=== PATIENT | male | born 1995 | race Caucasian/White ===

== ENCOUNTER 2017-09-12 22:23 | Emergency (ER) | payer OTHER, SELFPAY ==
[~2017-09-12 22:23] MED LIST: Sodium Chloride Irrig Solution 250 ML BOT ONE
--- NOTE | 2017-09-12 23:36 | CT ---
CT HEAD WITHOUT CONTRAST: 09/12/17 COMPARISON: None. HISTORY: Fall, trauma, pain. TECHNIQUE: Serial axial CT imaging is obtained at 5 mm intervals from vertex through skull base without contrast . FINDINGS: The bilateral central incisors of the maxilla are absent, possibly secondary to trauma. There is a fr acture involving the anterior most aspect of the maxilla in this region with associated soft tissue s welling and subcutaneous gas in the perinasal region and anterior to the maxilla on the left. Bilater al nasal bone fractures are suspected as well. No displaced calvarial fracture. No intracranial hemorrhage, midline shift or mass effect. IMPRESSION: Findings suggesting bilateral nasal bone fractures as well as an anterior maxillary fracture with abs ence of bilateral maxillary central incisors. POS: [facility]
[2017-09-12 23:46] LABS: #Basophils 0.1 thou/uL (0.0-0.2); #Eosinphils 0.1 thou/uL (0.0-0.7); #Lymphocytes 1.3 thou/uL (1.20-3.40); #Monocytes 0.9 thou/uL (0.11-0.59); #Neutrophils 8.2 thou/uL (1.40-6.50); %Basophils 0.9 % (0.0-1.0); %Eosinophils 1.2 % (0.0-10.0); %Lymphocytes 12.3 % (28.0-48.0); %Monocytes 8.2 % (0.0-4.0); %Neutrophils 77.5 % (31.0-61.0); Hemoglobin 15.3 g/dL (14.0-18.0); Mean Corpuscular Hemoglobin 31.1 pg (25.0-35.0); Mean Corpuscular Volume 91.3 fL (78.0-98.0); Mean Platelet Volume 8.4 fL (7.4-10.4); Platelet Count 150 thou/uL (130-400); RBC Distribution Width 10.5 % (11.5-14.5); Red Blood Cell (RBC) Count 4.92 mill/uL (4.00-5.20); White Blood Cell (WBC) Count 10.6 thou/uL (4.8-10.8)
[2017-09-13] LABS: ALT (SGPT) 55 U/L (8-55); AST (SGOT) 24 U/L (5-34); Albumin 4.6 g/dL (3.5-5.0); Alkaline Phosphatase 48 U/L (Less than 750); Anion Gap 18 mmol/L (10-20); BUN (Urea Nitrogen) 10 mg/dL (8.9-20.6); Bilirubin, Total 0.6 mg/dL (0.2-1.2); Calc. Creatinine Clearance 0 mL/min (70-130); Calcium 9.3 mg/dL (7.8-10.44); Carbon Dioxide 22 mmol/L (22-29); Chloride 105 mmol/L (98-107); Estimated GFR-MDRD Greater than 90; Globulin 2.7 g/dL (2.4-3.5); Glucose 97 mg/dL (70-105); Potassium 3.7 mmol/L (3.5-5.1); Protein, Total 7.3 g/dL (6.0-8.3); Sodium 141 mmol/L (136-145)
[2017-09-13 00:01] LABS: Acetaminophen Less than 6.0 mcg/mL (10.0-30.0); Alcohol 16 mg/dL (Less than 10); Salicylate Less than 8.0 mg/dL (15.0-30.0)
--- NOTE | 2017-09-13 00:08 | CT ---
FACIAL BONE CT 09/12/17 COMPARISON: None. HISTORY: Fall, trauma, pain. TECHNIQUE: Serial axial CT imaging at 2.5 mm intervals through the facial bones without contrast. Coronal and sa gittal reformatted imaging obtained. FINDINGS: The nasal bones, soft tissues of the nose, and the upper and lower lip are not fully imaged on this e xamination. Bilateral mildly displaced nasal bone fractures are noted, right more prominent than left. There is p erinasal soft tissue swelling, not fully imaged on this exam. There is soft tissue swelling anterior to the maxillary sinus on the right medially. There is an obliquely oriented fracture involving the a nterior superior aspect of the maxilla extending through the region of the right and left maxillary c entral incisors, both of which are absent. There are punctate incompletely imaged calcific densities in the region of the lower lip which may represent foreign bodies or fracture fragments. Neither temporomandibular joint appears dislocated. No discrete mandibular fracture is noted. On the lateral examination, the maxillary fracture anteriorly and superiorly is obliquely oriented an d the anterior superior fracture fragment is displaced superiorly extending into the midline base of the nasal cavity slightly. The zygomatic arches and the pterygoid plates are intact. The orbital floor and the medial orbital wa ll appears intact bilaterally. There appears to be a comminuted and slightly displaced/impacted osseous nasal septal fracture as wel l. IMPRESSION: Incomplete visualization of the soft tissues of the nose as well as the nasal bones. Bilateral nasal bone fractures are noted as well as fracture of the osseous nasal septum. There is also an obliquely oriented fracture involving the anterior superior aspect of the maxilla with superior displacement ex tending through the base of the left and right maxillary central incisors, both of these teeth absenc e, likely posttraumatic in nature. There are incompletely imaged calcific densities associated with t he lower lip as well. POS: [place]
--- NOTE | 2017-09-13 00:11 | CT ---
CERVICAL SPINE CT WITHOUT CONTRAST: 09/12/17 COMPARISON: None. HISTORY: Fall, trauma, pain. TECHNIQUE: Serial axial CT imaging at 2.5 mm intervals from the lung apices through the skull base without contr ast. Coronal and sagittal reformatted imaging obtained. FINDINGS: The imaged paranasal sinuses/mastoid air cells are well aerated. The C1 ring is intact. The occipital condyles, the dens, and the C1-2 articulation appears within nor mal limits. The craniocervical junction and the atlantoaxial interspace appears within normal limits as does the cervicothoracic junction. Cervical vertebral body height and alignment is normal. There is no prevert ebral soft tissue swelling. No displaced fracture or evidence of dislocation. Imaged lung apices demonstrate no acute findings. IMPRESSION: No acute fracture or evidence of dislocation. POS: [facility]
[2017-09-13] MEDS ORDERED: Oxymetazoline HCl 0.05% ( 15 ML ) ONE (02:03)
[2017-09-13] MEDS ORDERED: Morphine 10 MG/ML VIAL ONE (02:19)
[2017-09-13] MEDS ORDERED: HYDROcodone/Acetaminophen 10/325 mg Tablet ONE (03:20)
[2017-09-13] MEDS ORDERED: Cephalexin 500 MG CAP ONE (03:21)
[2017-09-13] MEDS ORDERED: Naproxen 500 MG TAB ONE (03:21)
[2017-09-13 03:43] LABS: Amphetamine Detected (NotDetected); Barbiturates Screen Not Detected (NotDetected); Benzodiazepine Screen Not Detected (NotDetected); Cocaine Metabolite Screen Not Detected (NotDetected); Medtox Control Line Valid? VALID (VALID); Methadone Not Detected (NotDetected); Methamphetamine Not Detected (NotDetected); Opiate Screen Not Detected (NotDetected); Oxycodone Screen Not Detected (NotDetected); Phencyclidine (PCP) Not Detected (NotDetected); THC/Cannabinoid Screen Detected (NotDetected); Tricyclic Screen Not Detected (NotDetected)
== END 2017-09-13 03:48 | disposition home or self-care (01) ==
LOC: MADERS 22:23
DX: S02.2XXA Fracture of nasal bones, initial encounter for closed fracture (principal); S01.81XA Laceration without foreign body of other part of head, initial encounter; F17.210 Nicotine dependence, cigarettes, uncomplicated; W19.XXXA Unspecified fall, initial encounter
CPT/HCPCS: 12014; 21315; 36415; 70450; 70486; 72125; 80053; 80306; 80307; 83605; 85025; 96374; J2001; J2270

== ENCOUNTER 2018-06-13 08:16 | Emergency (ER) | payer SELFPAY ==
[2018-06-13] MEDS ORDERED: Naproxen 500 MG TAB ONE (08:51)
== END 2018-06-13 08:55 | disposition home or self-care (01) ==
LOC: MADERS 08:16
DX: K04.7 Periapical abscess without sinus (principal); F17.210 Nicotine dependence, cigarettes, uncomplicated
CPT/HCPCS: 99282